=== PATIENT | female | born 1985 | race Caucasian/White ===

== ENCOUNTER 2018-10-01 13:23 | Emergency (ER) | payer SELFPAY ==
[~2018-10-01] VITALS: Ht 162.6 cm; Wt 78.3 kg
[2018-10-01 13:27] VITALS: BP 126/68; PULSE 92; RESP 17; Ht 162.6 cm; Wt 78.3 kg
[2018-10-01] MEDS ORDERED: KETOROLAC 60 MG INJ IM STA (14:50)
[2018-10-01] MEDS ORDERED: NAPR-985 PO (16:01)
--- NOTE | 2018-10-02 06:31 | ERD ---
ER Documentation Chief Complaint Chief Complaint BACK PAIN FOR SEVERAL MONTHS, COUGH WITH PHLEGM HPI 32-year-old female presenting with back pain and cough for a few months. Patient describes as a dry cough that she is concerned that she has "cancer". She does not have any family history but she wants an x-ray to rule out any potential abnormalities in her lungs. She has some pain with movement. She has mild pleuritic chest pain. No recent travel. Does not smoke. No recent surgery. No OCP use. Denies medical problems. NKDA. Surgical history denies. ROS All systems reviewed and are negative except as per history of present illness. Medications Home Meds Active Scripts Naproxen* (Naprosyn*) 500 Mg Tablet, 500 MG PO BID PRN for PAIN AND/OR INFLAMMATION, #30 TAB Prov:MAYRA MOSES PA-C 10/01/18 Allergies Allergies: Coded Allergies: No Known Allergy (Unverified , 10/01/18) PMhx/Soc Medical and Surgical Hx: pt denies Medical Hx, pt denies Surgical Hx Hx Alcohol Use: No Hx Substance Use: No Hx Tobacco Use: No Smoking Status: Never smoker FmHx Family History: No diabetes, No coronary disease, No other Physical Exam Vitals Vital Signs Date Temp Pulse Resp B/P (MAP) Pulse Ox O2 O2 Flow FiO2 Time Delivery Rate 10/01/18 99.4 92 17 126/68 98 13:27 (87) Physical Exam GENERAL: The patient is well-appearing, well-nourished, in no acute distress CHEST: Clear to auscultation bilaterally. There are no rales, wheezes or rhonchi. HEART: Regular rate and rhythm. No murmurs, clicks, rubs or gallops. No S3 or S4. BACK: No midline or flank tenderness. SKIN: There is no apparent rash or petechiae. The skin is warm and dry. Results 24 hrs Laboratory Tests Test 10/01/18 15:03 POC Beta HCG, Qualitative NEGATIVE Current Medications Medications Dose Sig/Jocelyn Start Time Status Last (Trade) Ordered Route PRN Stop Time Admin Dose Reason Admin Ketorolac 60 mg ONCE STAT 10/01/18 DC 10/01/18 Tromethamine IM 14:50 15:11 (Toradol) 10/01/18 14:51 Procedures/MDM DIAGNOSTIC IMAGING REPORT Patient: WESTON GUILLEN : 1985 Age: 32 Sex: F MR #: [id number] DOS: 10/01/18 1450 Ordering MD: HUONG MOSES PA-C Location: [facility] Room/Bed: PROCEDURE: XR Chest. CLINICAL INDICATION: Cough TECHNIQUE: Single portable view of the chest was obtained. COMPARISON: None. FINDINGS: Cardiac/vascular structures: Normal cardiomediastinal silhouette. Pulmonary: Lungs are clear. No pleural effusion. No evidence of pneumothorax. Osseous structures: Normal Soft tissues: Normal IMPRESSION: No acute cardiopulmonary disease. MDM: 32-year-old female presenting with cough and back pain. Patient exam is non-concerning vitals are stable. I have considered pneumonia versus PE versus malignancy I have low suspicion. Patient's exam is non-concerning. Patient is discharged with supportive medications and told to follow-up with primary care within 1 to 2 days for close evaluation. Patient is told symptoms change or worsen to return immediately to the ER. All questions answered at discharge Departure Diagnosis: Primary Impression: Pleuritic chest pain Condition: Stable Patient Instructions: Pleurisy Referrals: [facility] YOU HAVE RECEIVED A MEDICAL SCREENING EXAM AND THE RESULTS INDICATE THAT YOU DO NOT HAVE A CONDITION THAT REQUIRES URGENT TREATMENT IN THE EMERGENCY DEPARTMENT. FURTHER EVALUATION AND TREATMENT OF YOUR CONDITION CAN WAIT UNTIL YOU ARE SEEN IN YOUR DOCTORS OFFICE WITHIN THE NEXT 1-2 DAYS. IT IS YOUR RESPONSIBILITY TO MAKE AN APPOINTMENT FOR FOLOW-UP CARE. IF YOU HAVE A PRIMARY DOCTOR --you should call your primary doctor and schedule an appointment IF YOU DO NOT HAVE A PRIMARY DOCTOR YOU CAN CALL OUR PHYSICIAN REFERRAL HOTLINE AT IF YOU CAN NOT AFFORD TO SEE A PHYSICIAN YOU CAN CHOSE FROM THE FOLLOWING [facility] [address] [facility]. [facility] [address] [facility] [facility] [address] [facility] [facility] [address] [facility]. [facility] [address] [facility]. [facility]. [address] Additional Instructions: FOLLOW UP WITH YOUR PRIMARY CARE PHYSICIAN TOMORROW.Return to this facility if you are not improving as expected. MAYRA MOSES PA-C Oct 02, 2018 06:31
== END 2018-10-01 16:14 | disposition home or self-care (01) ==
LOC: FTE 13:23
DX: R07.1 Chest pain on breathing (principal)
CPT/HCPCS: 71045; 81025; 96372; 99284; J1885